=== PATIENT | male | born 1960 | race Caucasian/White ===

== ENCOUNTER 2023-04-13 06:03 | Emergency (ER) | payer OTHER ==
[2023-04-13] MEDS ORDERED: Acetaminophen/oxyCODONE 325-5 MG Tab PO ONE (06:16)
== END 2023-04-13 06:40 | disposition home or self-care (01) ==
LOC: MW.ED 06:03
DX: H60.91 Unspecified otitis externa, right ear (principal)
CPT/HCPCS: 99282; A9270